=== PATIENT | female | born 1995 | race Two or more races ===

== ENCOUNTER 2016-06-12 19:54 | Emergency (ER) | payer MEDICAID, OTHER ==
[2016-06-12 19:59] VITALS: RESP 18
[2016-06-12] MEDS ORDERED: ALBUTEROL INH PREPACK MDI TAKEHOME ONE (20:59)
--- NOTE | 2016-06-12 21:01 | UCPHY ---
H & P Time Seen by Provider: 06/12/16 19:59 Patient Type: Established HPI/ROS: This patient describes a cough since yesterday that is primarily dry cough with feeling of chest congestion. She has associated fevers mild chills and myalgias. She also feels slight shortness of breath and wheezing. Finally, she reports a mild sore throat that worsens with swallowing and thinks that might be from all the coughing. No clear exacerbating or alleviating factors except for relief of the fevers with ibuprofen. ROS: No significant fatigue. No other constitutional symptoms. HEENT: No facial pain. No dysphonia. No stridor. Pulmonary: No pleuritic pain. No respiratory distress. Cardiovascular: No lightheadedness or leg swelling. On GI: No vomiting diarrhea. Integumentary: No skin rash. 7 point ROS is otherwise negative. Past Medical/Surgical History: Obesity. 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 General: No acute distress HEENT: Nose: Mild yellow DC bilaterally. No sinus tenderness to percussion. Ears: External canals and tympanic membranes are clear with no erythema or abnormal findings bilaterally. Oropharynx: Mild erythema erythema , no exudates. No dysphonia. No drooling or stridor. Eyes: Pupils equal and react to light. Extraocular motions are intact. Lungs: Expiratory wheeze bilaterally-mild with rhonchi bilaterally. No rales. Cardiac: Regular rate and rhythm with no murmur gallop or rub Skin: No rash or pallor. Neuro: Alert with no focal deficits noted. Initial differential diagnosis: Influenza, viral versus bacterial bronchitis, strep pharyngitis Constitutional: Initial Vital Signs Temperature (C) 37.2 C 06/12/16 19:56 Heart Rate 72 06/12/16 19:56 Respiratory Rate 18 06/12/16 19:56 Blood Pressure 128/85 H 06/12/16 19:56 O2 Sat (%) 97 06/12/16 19:56 O2 Delivery Mode Room Air Allergies/Adverse Reactions: No Known Allergies Allergy (Verified 11/23/14 02:38) Home Medications: Medication Instructions Recorded Ibuprofen [Motrin (*)] 600 mg PO Q6PRN PRN #20 tab 11/23/14 Azithromycin [Zithromax] 250 mg PO DAILY #6 tab 06/12/16 Medical Decision Making ED Course/Re-evaluation: Rapid strep and rapid influenza are negative. I counseled the patient regarding influenza. She is discharged with a albuterol inhaler from our clinic - Data Points Laboratory Results: 06/12/16 06/12/16 06/12/16 Unknown 20:07 20:00 Influenza Typ A,B (DFA) NEGATIVE FOR FLU (NEGATIVE) Group A Strep Screen NEGATIVE (NEGATIVE) Group A Strep DNA Pending Medications Given: Discontinued Medications Albuterol Sulfate (Proventil Inh Prepack) 1 mdi TAKEBHANUE EDNOW ONE Stop: 06/12/16 21:00 Last Admin: 06/12/16 21:13 Dose: 1 mdi Departure - Departure Disposition: Home, Routine, Self-Care Clinical Impression: Acute bronchitis Qualifiers: Bronchitis organism: unspecified organism Qualified Code(s): J20.9 - Acute bronchitis, unspecified Condition: Good Instructions: Acute Bronchitis (ED) Additional Instructions: Diagnosis: Acute bronchitis Plan: Humidifier Ibuprofen for fevers or chills if needed Albuterol inhaler with spacer for cough, wheeze or shortness of breath-2 puffs every 4 hours as needed If you're not improving over the next 3-5 days with treatment plan, then start the Zithromax antibiotic in addition Return for any significant worsening despite the treatment plan Referrals: LEONARDO SUNSHINE,. [Primary Care Provider] - As per Instructions Stand Alone Forms: Work Excuse Prescriptions: Azithromycin [Zithromax] 250 mg PO DAILY #6 tab - PQRS PQRS Measurement: NA
[2016-06-12 21:27] VITALS: BP 128/68; PULSE 78; TEMP 97.9; O2SAT 95
== END 2016-06-12 21:25 | disposition home or self-care (01) ==
LOC: CED 19:54
DX: J20.9 Acute bronchitis, unspecified (principal); E66.9 Obesity, unspecified; Z68.54 Body mass index [BMI] pediatric, 95th percentile for age to less than 120% of the 95th percentile for age
CPT/HCPCS: 87400-PO; 87880-PO; 99214-PO; G0463-PO

== ENCOUNTER 2018-01-23 13:04 | Emergency (ER) | payer OTHER ==
[2018-01-23 13:11] VITALS: BP 157/97
[2018-01-23] MEDS ORDERED: IBUPROFEN 600 MG TAB PO ONE (15:42)
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
== END 2018-01-23 17:00 | disposition home or self-care (01) ==
DX: S39.012A Strain of muscle, fascia and tendon of lower back, initial encounter (principal); S46.911A Strain of unspecified muscle, fascia and tendon at shoulder and upper arm level, right arm, initial encounter; Y04.8XXA Assault by other bodily force, initial encounter; Y99.9 Unspecified external cause status; Y92.9 Unspecified place or not applicable; Y93.9 Activity, unspecified

== ENCOUNTER → 2018-01-27 | Outpatient (CLI) | payer OTHER | LOC: CIMAGING 10:21 | PROVIDERS: ATTEND Physical Medicine & Rehabilitation | DX: M51.34 Other intervertebral disc degeneration, thoracic region (principal) | CPT/HCPCS: 72070-PO ==